=== PATIENT | male | born 1950 | race Native Hawaiian/Other Pacific Islander ===

== ENCOUNTER 2019-11-24 14:23 | Outpatient (CLI) | payer OTHER | END 2019-11-24 22:32 | disposition home or self-care (01) | LOC: RAD 14:23 | DX: M25.551 Pain in right hip (principal); R22.41 Localized swelling, mass and lump, right lower limb; I82.401 Acute embolism and thrombosis of unspecified deep veins of right lower extremity ==

== ENCOUNTER 2020-02-08 08:35 | Outpatient (CLI) | payer OTHER | END 2020-02-08 22:31 | disposition home or self-care (01) | LOC: LABW 08:35 | DX: K59.1 Functional diarrhea (principal) | CPT/HCPCS: 82272; 82705; 83630; 87015; 87045; 87324; 87328; 87329; 87338; 87449; 87899 ==

== ENCOUNTER 2020-07-06 08:54 | Outpatient (CLI) | payer OTHER | END 2020-07-06 23:34 | disposition home or self-care (01) | LOC: LABW 08:54 | DX: R19.7 Diarrhea, unspecified (principal) | CPT/HCPCS: 82272; 83630; 87015; 87045; 87324; 87328; 87329; 87449; 87899 ==

== ENCOUNTER 2021-10-30 14:56 | Outpatient (CLI) | payer OTHER ==
[2021-10-30 15:28] LABS: PLATELET COUNT 247 K/uL (142-355)
[2021-10-30 15:46] LABS: POTASSIUM 2.6 mmol/L (3.6-5.2)
== END 2021-10-30 19:18 | disposition home or self-care (01) ==
LOC: LABW 14:56
PROVIDERS: ATTEND Nurse Practitioner Family
DX: R53.1 Weakness (principal); R55 Syncope and collapse; Z87.898 Personal history of other specified conditions
CPT/HCPCS: 36415; 80053; 83735; 85027

== ENCOUNTER 2022-04-18 14:10 | Outpatient (CLI) | payer OTHER | END 2022-04-18 20:37 | disposition home or self-care (01) | LOC: LAB 14:10 | PROVIDERS: ATTEND Internal Medicine Gastroenterology | DX: K64.0 First degree hemorrhoids (principal) | CPT/HCPCS: 82272 ==